=== PATIENT | male | born 1950 | race Caucasian/White ===

== ENCOUNTER 2023-08-28 18:58 | Emergency (ER) | payer MEDICARE, SELFPAY ==
[2023-08-28] VITALS (16 sets, daily range): BP systolic 94–160; BP diastolic 60–94; PULSE 68–141; RESP 15–28; TEMP 37.9–39.7; O2SAT 91–100; BMI 40.6
--- NOTE | 2023-08-28 19:04 | CTR_ITS ---
PROCEDURE INFORMATION: Exam: CT Head Without Contrast Exam date and time: 08/28/2023 8:03 PM Age: 73 years old Clinical indication: Injury or trauma; Fall; Blunt trauma (contusions or hematomas); Injury details: PT is unresponsive. Found on ground; Additional info: Fall, head injury TECHNIQUE: Imaging protocol: Computed tomography of the head without contrast. Radiation optimization: All CT scans at this facility use at least one of these dose optimization techniques: automated exposure control; mA and/or kV adjustment per patient size (includes targeted exams where dose is matched to clinical indication); or iterative reconstruction. COMPARISON: CT cervical spin wo con* [id number] 08/28/2023 8:03 PM RADIATION DOSE METRICS: Total DLP (mGy-cm): 1124.9 FINDINGS: Brain: There is diffuse cerebral atrophy and chronic microvascular white matter disease. There is no significant mass effect or midline shift. There is no acute intracranial hemorrhage. Cerebral ventricles: There is mild ex vacuo dilation of the lateral ventricles. The basal cisterns are unremarkable. Paranasal sinuses: The paranasal sinuses are clear. Mastoid air cells: The mastoid air cells are clear. Orbital cavities: The orbits are unremarkable. Bones: The calvarium is intact. Soft tissues: Mild left frontal scalp edema. CT/CT head wo con* [id number] IMPRESSION: No acute intracranial abnormality.
--- NOTE | 2023-08-28 19:04 | ECG_ITS ---
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 Measurements Intervals Humble Rate: 67 P: 67 WA: 115 QRS: 107 QRSD: 93 T: 15 QT: 400 QTc: 424 Interpretive Statements SINUS RHYTHM WITH SHORT WA INTERVAL RIGHT AXIS DEVIATION [QRS AXIS > 100] MODERATE T-WAVE ABNORMALITY, CONSIDER INFERIOR ISCHEMIA [-0.1+ mV T-WAVE IN II/aVF] No previous ECG available for comparison Electronically Signed On 08-29-2023 0:02:07 CDT by Dony Louis M.D. [id number]
--- NOTE | 2023-08-28 19:04 | XRR_ITS ---
PROCEDURE INFORMATION: Exam: XR Chest Exam date and time: 08/28/2023 7:31 PM Age: 73 years old Clinical indication: Other: Syncope; Additional info: Chest pain. Tube placements. TECHNIQUE: Imaging protocol: Radiologic exam of the chest. Views: 1 view. COMPARISON: No relevant prior studies available. FINDINGS: Tubes, catheters and devices: The endotracheal tube is appropriately positioned in the distal thoracic trachea with the tip above the linda. NG tube tip is in the stomach approximately 5 cm beyond the diaphragmatic hiatus. The side port lies just above the expected position of the diaphragmatic hiatus. Lungs: There is no consolidation. Pleural spaces: There is no pleural effusion or pneumothorax. Heart/Mediastinum: Cardiomediastinal contours are unremarkable. Diaphragm: There is mild asymmetric elevation of the right hemidiaphragm. Bones/joints: Bones are unremarkable. XR/XR chest 1V portable [id number] IMPRESSION: 1. NG tube tip is in the stomach. The side port is above the diaphragmatic hiatus. Recommend advancing the tube 10 cm for ideal position. 2. Satisfactory endotracheal tube position.
--- NOTE | 2023-08-28 19:05 | CTR_ITS ---
PROCEDURE INFORMATION: Exam: CT Chest Without Contrast; Diagnostic Exam date and time: 08/28/2023 8:07 PM Age: 73 years old Clinical indication: Injury or trauma; Fall; Generalized; Blunt trauma (contusions or hematomas) TECHNIQUE: Imaging protocol: Diagnostic computed tomography of the chest without contrast. Radiation optimization: All CT scans at this facility use at least one of these dose optimization techniques: automated exposure control; mA and/or kV adjustment per patient size (includes targeted exams where dose is matched to clinical indication); or iterative reconstruction. COMPARISON: CR (CHEST, ) 08/28/2023 7:31 PM RADIATION DOSE METRICS: Total DLP (mGy-cm): 1355.7 FINDINGS: Tubes, catheters and devices: The endotracheal tube is appropriately positioned in the distal thoracic trachea with the tip 1.8 cm above the linda. Orogastric tube extends 8 cm into the stomach. The side port lies at the diaphragmatic hiatus. Lungs: There is subsegmental atelectasis in the lung bases. Lung volumes are low. There is no consolidation. Pleural spaces: There is no pleural effusion or pneumothorax. Heart: Heart size is normal. There is no pericardial effusion. Coronary arteries: There is moderate coronary artery calcification. Mediastinal space: There is no mediastinal hematoma. Lymph nodes: There is no mediastinal or hilar lymphadenopathy. Vasculature: There is mild aortic atherosclerotic disease. Bones/joints: No visible rib fractures. The visible portions of the clavicles, scapulae, and proximal humeri are intact. Thoracic spine is intact. The sternum is intact. There is subtle deformity of the inferomedial right scapular body visible on axial series 4 image 9 through 16 which is partially obscured by beam hardening artifact from structures adjacent to the patient. Soft tissues: The extrathoracic soft tissues are unremarkable. PROCEDURE INFORMATION: Exam: CT Abdomen And Pelvis Without Contrast Exam date and time: 08/28/2023 8:07 PM Age: 73 years old Clinical indication: Injury or trauma; Fall; Generalized; Blunt trauma (contusions or hematomas) TECHNIQUE: Imaging protocol: Computed tomography of the abdomen and pelvis without contrast. Radiation optimization: All CT scans at this facility use at least one of these dose optimization techniques: automated exposure control; mA and/or kV adjustment per patient size (includes targeted exams where dose is matched to clinical indication); or iterative reconstruction. COMPARISON: CR (CHEST, ) 08/28/2023 7:31 PM RADIATION DOSE METRICS: Total DLP (mGy-cm): 1355.7 FINDINGS: Tubes, catheters and devices: NG tube extends into the stomach, with the side port at the diaphragmatic hiatus. Liver: The liver is normal. Gallbladder and bile ducts: There is a solitary stone in the gallbladder neck. No sign of cholecystitis. There is no intrahepatic or extrahepatic bile duct dilation. Pancreas: The pancreas is unremarkable. Spleen: The spleen is unremarkable. Adrenal glands: The adrenal glands are unremarkable. Kidneys and ureters: The kidneys are unremarkable. No hydronephrosis or stones. No ureteral dilation. Stomach and bowel: The stomach is nondistended, limiting assessment of wall thickness. The small bowel is nondilated. There is mild sigmoid colonic diverticulosis without evidence of diverticulitis. Appendix: The appendix is normal. Intraperitoneal space: There is no free air or significant intraperitoneal free fluid. Vasculature: There is mild aortic atherosclerotic disease. Lymph nodes: There is no lymphadenopathy in the retroperitoneum, mesentery, pelvis or inguinal regions. Urinary bladder: The Baum catheter is appropriately positioned with the bulb and tip within the bladder lumen. The urinary bladder is nondistended, limiting assessment of wall thickness. Reproductive: The prostate and seminal vesicles are unremarkable. Bones/joints: There is mild degenerative disease in the lumbar spine. There are age-indeterminate mild compression fractures at L3 and L1. There is mild degenerative disease of both hips. The bony pelvis is intact. Soft tissues: The abdominal wall is intact. CT/[place] [id number] IMPRESSION: 1. No sign of significant intrathoracic injury. 2. Subtle deformity of the inferomedial right scapular body associated with artifact. Question nondisplaced fracture. Correlate with physical exam findings. No fracture is seen elsewhere. 3. Satisfactory endotracheal tube position. IMPRESSION: 1. No sign of significant intra-abdominal injury. 2. Mild age-indeterminate L3 and L1 superior endplate compression fractures. 3. Orogastric tube tip is in the stomach. The side port is at the diaphragmatic hiatus. Recommend advancing the tube 5-10 cm for ideal position. 4. Incidental findings above.
--- NOTE | 2023-08-28 19:05 | XRR_ITS ---
PROCEDURE INFORMATION: Exam: XR Left Shoulder Exam date and time: 08/28/2023 7:33 PM Age: 73 years old Clinical indication: Injury or trauma; Fall; Blunt trauma (contusions or hematomas); Shoulder; Left; Additional info: Trauma suspected dislocation TECHNIQUE: Imaging protocol: Radiologic exam of the left shoulder. Views: 2 or more views. COMPARISON: CR (CHEST, ) 08/28/2023 7:31 PM FINDINGS: Bones/joints: Glenohumeral alignment is normal. No visible humeral, scapular or clavicle fracture. AC joint alignment is normal. Soft tissues: Visible soft tissues are unremarkable. XR/XR shoulder LT min 2V* [id number] IMPRESSION: No visible fracture or dislocation.
--- NOTE | 2023-08-28 19:05 | CTR_ITS ---
PROCEDURE INFORMATION: Exam: CT Cervical Spine Without Contrast Exam date and time: 08/28/2023 8:03 PM Age: 73 years old Clinical indication: Injury or trauma; Fall; Additional info: Fall, neck pain TECHNIQUE: Imaging protocol: Computed tomography of the cervical spine without contrast. Radiation optimization: All CT scans at this facility use at least one of these dose optimization techniques: automated exposure control; mA and/or kV adjustment per patient size (includes targeted exams where dose is matched to clinical indication); or iterative reconstruction. COMPARISON: CT head wo con* [id number] 08/28/2023 8:03 PM RADIATION DOSE METRICS: Total DLP (mGy-cm): 849 FINDINGS: Tubes, catheters and devices: Endotracheal and orogastric tubes are partially imaged. Bones: Spinal alignment is normal. Vertebral body height is maintained. There is mild degenerative disc disease in the cervical spine. There is mild multilevel facet spondylosis. No acute fracture. There is subtle deformity of the inferior right scapular body which is partially obscured by beam hardening artifact. Lungs: Lung apices are clear. Soft tissues: Soft tissues in the neck and thoracic inlet are unremarkable. CT/CT cervical spin wo con* [id number] IMPRESSION: 1. No spinal fracture. No severe spinal stenosis. 2. Subtle deformity of the right scapular body may be artifactual. Nondisplaced fracture cannot be excluded.
[2023-08-28] MEDS: vecuronium 10 mg SDV IVP (19:10)
[2023-08-28] MEDS: etomidate 2 mg/mL INJ SDV 10 mL 20 MG IVP (19:10)
[2023-08-28 19:11] LABS: Basophils % 0.2 %; Hematocrit 57.6 % (37-53); Lymphocytes % 5.2 %; Mean Corpuscular HGB Conc 33.3 g/dL (30-55); Mean Platelet Volume 10.5 fL (7.4-10.4); Monocytes # 1.7 10^3/uL (0.2-0.9); Neutrophils # 15.75 10^3/uL (1.8-7.7); Neutrophils % 84.9 %; Nucleated Red Blood Cells % 0 %; Platelet Count 251 10^3/cmm (157-399); Red Cell Distribution Width 13.2 % (12.1-15.1); White Blood Count 18.55 10^3/uL (3.29-11.43)
[2023-08-28] MEDS: fentaNYL 1,000 MCG/100 ML BAG 2.5 MCG IV (19:15)
[2023-08-28] MEDS: propofol 1,000 MG/100 ML INJ 4.08000000000000007 MG IV (19:15)
--- NOTE | 2023-08-28 19:21 | ED_ITS ---
HPI - Altered Mental Status 2 General: Chief Complaint: Syncope Stated Complaint: Unresponsive Time Seen by Provider: 08/28/23 19:00 Source: EMS Mode of arrival: EMS Limitations: altered mental status History of Present Illness: Patient presents to the ER by EMS unresponsive with sonorous respirations. Patient was found at down on his floor in his house when someone came and checked on him they called 911. EMS found him unresponsive, his blood sugar read high, they put in an IV and gave him approximately 250 mL of fluid on the way here. They did insert a nasopharyngeal airway. When patient arrived here he was unresponsive to painful stimuli, sonorous respirations, Review of Systems 2 General: Reports: ROS unobtainable due to endotracheal tube and ROS unobtainable due to mental status Physical Exam 2 Const: EXAM LIMITATIONS: altered mental status OTHER: Morbidly obese male unresponsive to painful stimuli, sonorous respirations, nasopharyngeal airway intact blood sugar read high, temperature approximately 103.4. Gag reflex was still present. HENMT: OTHER: Large lump on left temporal area could be consistent with hematoma, oral gag reflex still present. Black secretions noted in oral cavity very poor dentition Eye: OTHER: Pupils equal but pinpoint unresponsive to light Chest: OTHER: Abrasion noted on left anterior chest wall, bleeding is controlled, Resp: OTHER: Sonorous respirations, unable to maintain own airway, breath sounds decreased but present bilaterally Cardio: COMMON NORMALS: regular rate, S1 normal heart sound present and S2 normal heart sound present; negative for regular rhythm (Tachycardic) RATE: regular rate RHYTHM: a bnormal rhythm (Tachycardic) HEART SOUNDS: S1 normal heart sound present and S2 normal heart sound present GI: COMMON NORMALS: Normal to inspection, nondistended, normoactive bowel sounds present, Soft to palpation, non-tender, No hepatosplenomegaly present and no masses PALPATION: Yes Soft to palpation and Yes No hepatosplenomegaly present : OTHER: Minimal urine noted with nursing place Baum catheter Extremity: NARRATIVE EXTREMITY EXAM: Left anterior shoulder deformity possible dislocation Neuro: OTHER: Unresponsive to painful stimuli, noted patient to move all 4 extremities at times, gag reflex present, pupils unreactive and pinpoint, Procedures Intubation Time out performed: Yes sedative: Etomidate Mg Given: 20 paralytic: Vecuronium Mg Given: 10 Laryngoscope: fiber optic video scope ET Tube Size: 8 Tube Secured Depth (cm): 26 Tube Secured Location: lips Tube Placement Confirmation: visualized tube passing through cords, equal breath sounds bilaterally and no breath sounds over epigastrium Patient Tolerated Procedure: well and no complications Course 2 Vital Signs: Vital signs: Vital Signs Temperature 102.2 F H 08/28/23 21:17 Pulse Rate 119 H 08/28/23 21:17 Respiratory Rate 20 H 08/28/23 21:17 Blood Pressure 110/75 08/28/23 21:17 Pulse Oximetry 98 08/28/23 21:17 Oxygen Delivery Me thod Mechanical Ventil ation 08/28/23 21:13 Fraction of Inspir ed Oxygen 50 08/28/23 19:44 MDM - Altered Mental Status Medical Decision Making Patient was noted not being able to keep his own airway open. Patient was RSI and intubated placed on the ventilator per RT. Lab work was obtained as well as multiple images. Patient showed a white count of 18.5, hemoglobin hematocrit 19.2 57.6, sugar of 803, BUN/creatinine of 60 and 3.8, lactic acid of 8.1, magnesium 2.5, creatinine kinase of 8400 approximately urine drug screen was negative as well as serum ketones and alcohol, patient was given sepsis bolus of 30 mL/kg normal saline, 3.375 g Zosyn, 10 units of IV insulin, 400 mg of IV Tylenol, Dr Marie food sales clerk at [facility] excepted. We will place patient half-normal saline at 150 cc an hour, started insulin drip, get a CTA of the chest, 2 amp bicarb push and also a drip of 3 A of bicarb in sterile water at 125 cc an hour, 1 g of Vanco, cooling blanket or ice packs to groin, Differential Diagnosis Likely altered mental status and sepsis Medical Records I reviewed the patient's medical records. Lab Data I reviewed the patient's lab results. 08/28/23 18:40 08/28/23 18:40 Radiology Impressions Chest X-Ray 08/28/23 19:04 IMPRESSION: 1. NG tube tip is in the stomach. The side port is above the diaphragmatic hiatus. Recommend advancing the tube 10 cm for ideal position. 2. Satisfactory endotracheal tube position. Head CT 08/28/23 19:04 IMPRESSION: No acute intracranial abnormality. Cervical Spine CT 08/28/23 19:05 IMPRESSION: 1. No spinal fracture. No severe spinal stenosis. 2. Subtle deformity of the right scapular body may be artifactual. Nondisplaced fracture cannot be excluded. Chest/Abdomen/Pelvis CT 08/28/23 19:05 IMPRESSION: 1. No sign of significant intrathoracic injury. 2. Subtle deformity of the inferomedial right scapular body associated with artifact. Question nondisplaced fracture. Correlate with physical exam findings. No fracture is seen elsewhere. 3. Satisfactory endotracheal tube position. IMPRESSION: 1. No sign of significant intra-abdominal injury. 2. Mild age-indeterminate L3 and L1 superior endplate compression fractures. 3. Orogastric tube tip is in the stomach. The side port is at the diaphragmatic hiatus. Recommend advancing the tube 5-10 cm for ideal position. 4. Incidental findings above. Shoulder X-Ray 08/28/23 19:05 IMPRESSION: No visible fracture or dislocation. Laboratory Results WBC 18.55 10^3/uL (3.29-11.43) H 08/28/23 18:40 RBC 6.40 10^6/uL (3.85-5.65) H 08/28/23 18:40 Hgb 19.20 g/dL (11.27-16.99) H 08/28/23 18:40 Hct 57.6 % (37-53) H 08/28/23 18:40 MCV 90.0 fl (82-101) 08/28/23 18:40 MCH 30.0 pg (27-33) 08/28/23 18:40 MCHC 33.3 g/dL (30-55) 08/28/23 18:40 RDW 13.2 % (12.1-15.1) 08/28/23 18:40 Plt Count 251 10^3/cmm (157-399) 08/28/23 18:40 MPV 10.5 fL (7.4-10.4) H 08/28/23 18:40 Neut % (Auto) 84.9 % 08/28/23 18:40 Lymph % (Auto) 5.2 % 08/28/23 18:40 Donley % (Auto) 9.0 % 08/28/23 18:40 Eos % (Auto) 0.0 % 08/28/23 18:40 Baso % (Auto) 0.2 % 08/28/23 18:40 Neut # (Auto) 15.75 10^3/uL (1.8-7.7) H 08/28/23 18:40 Lymph # (Auto) 1.0 10^3/uL (0.8-4.8) 08/28/23 18:40 Donley # (Auto) 1.7 10^3/uL (0.2-0.9) H 08/28/23 18:40 Eos # (Auto) 0.0 10^3/uL (0.0-0.8) 08/28/23 18:40 Baso # (Auto) 0.0 10^3/uL (0.0-0.1) 08/28/23 18:40 Nucleated RBC % (auto) 0 % 08/28/23 18:40 Nucleated RBCs # 0.0 /100WBC 08/28/23 18:40 PT 14.90 SECONDS (12.1-14.9) 08/28/23 18:40 INR 1.13 (0.8-1.2) 08/28/23 18:40 Specimen Type Arterial 08/28/23 19:19 Sample Site Radial, right 08/28/23 19:19 ABG pH 7.26 (7.35-7.45) L 08/28/23 19:19 ABG pCO2 31.8 mmHg (35-45) L 08/28/23 19:19 ABG pO2 394.0 mmHg (80.0-100.0) H 08/28/23 19:19 ABG PO2/FiO2 Ratio 0 08/28/23 19:19 ABG HCO3 14.4 mmol/L (22-26) L 08/28/23 19:19 ABG O2 Saturation > 100.0 08/28/23 19:19 ABG Base Excess -11.2 mmol/L (-2.0-2.0) L 08/28/23 19:19 Holden Test Pos 08/28/23 19:19 A-a O2 Gradient 34.6 mmHg (5-10) H 08/28/23 19:19 Hematocrit 56.4 % (42-52) H 08/28/23 19:19 Hgb O2 Saturation 99.2 % (95-100) 08/28/23 19:19 Carboxyhemoglobin 1.2 %THgb (0.4-20.1) 08/28/23 19:19 Methemoglobin 0.3 % (0.4-1.5) L 08/28/23 19:19 Total Hemoglobin 18.4 g/dL (14-18) H 08/28/23 19:19 Sodium 136.0 mmol/L (131-143) 08/28/23 19:19 Potassium 4.9 mmol/L (3.5-5.0) 08/28/23 19:19 Glucose 844.0 mg/dL (70-115) H 08/28/23 19:19 Ionized Calcium 1.1 mmol/L (1.1-1.4) 08/28/23 19:19 O2 Delivery Device Vent 08/28/23 19:19 FiO2 100.0 % 08/28/23 19:19 Tidal Volume 0.50 08/28/23 19:19 PEEP 8.0 cmH20 08/28/23 19:19 Supervisor Shuttle Preparation ID [id number] 08/28/23 19:19 Sodium 136 mmol/L (136-145) 08/28/23 18:40 Potassium 5.1 mmol/L (3.5-5.1) 08/28/23 18:40 Chloride 88 mmol/L (98-107) L 08/28/23 18:40 Carbon Dioxide 16 mmol/L (22-29) L 08/28/23 18:40 Anion Gap 37.1 (5-19) H 08/28/23 18:40 BUN 60 mg/dL (8-23) H 08/28/23 18:40 Creatinine 3.8 mg/dL (0.7-1.2) H 08/28/23 18:40 GFR Calculation Not Reportable 08/28/23 18:40 Glucose 803 mg/dL (65-115) H* 08/28/23 18:40 Calculated Osmolality 338 mOsm/kg (285-295) H 08/28/23 18:40 Lactic Acid 8.1 mmol/L (0.5-2.2) H* 08/28/23 18:40 Calcium 9.8 mg/dL (8.5-10.5) 08/28/23 18:40 Phosphorus 4.0 mg/dL (2.5-4.5) 08/28/23 18:40 Magnesium 2.5 mg/dL (1.7-2.3) H 08/28/23 18:40 Total Bilirubin 1.4 mg/dL (0.15-1.2) H 08/28/23 18:40 AST 113 U/L (0-40) H 08/28/23 18:40 ALT 56 U/L (0-41) H 08/28/23 18:40 Alkaline Phosphatase 115 U/L (40-130) 08/28/23 18:40 Creatine Kinase 8464 U/L (39-308) H* 08/28/23 18:40 Troponin T Baseline 65 ng/L (0-15) H 08/28/23 18:40 C-Reactive Protein 128.6 mg/L (0.0-4.9) H 08/28/23 18:40 Total Protein 7.5 g/dL (6.6-8.7) 08/28/23 18:40 Albumin 4.7 g/dL (3.5-5.2) 08/28/23 18:40 Globulin 2.8 g/dL (1.3-4.6) 08/28/23 18:40 Procalcitonin 0.79 ng/mL (0-0.5) H 08/28/23 18:40 TSH 1.03 uIU/mL (0.27-4.20) 08/28/23 18:40 Urine Color Yellow (Yellow) 08/28/23 19:28 Urine Appearance Slightly cloudy (CLEAR) 08/28/23 19: Urine pH 5 (5-7) 08/28/23 19:28 Ur Specific [place] 1.020 (1.005-1.030) 08/28/23 19:28 Urine Protein 1+ (Negative) H 08/28/23 19: Urine Glucose (UA) 4+ (Normal) H 08/28/23 19: Urine Ketones 1+ (Negative) H 08/28/23 19:28 Urine Blood 3+ (Negative) H 08/28/23 19:28 Urine Nitrate Negative (Negative) 08/28/23 19: Urine Bilirubin Neg (Negative) 08/28/23 19: Urine Urobilinogen Neg mg/dL (Negative) 08/28/23 19:28 Ur Leukocyte Esterase Negative (Negative) 08/28/23 19:28 Urine RBC 0-4 /hpf (0-2) H 08/28/23 19:28 Urine WBC 5-10 /hpf (0-5) H 08/28/23 19:28 Ur Squamous Epith Cells 0-4 /hpf (0-5) H 08/28/23 19:28 Ur Transition Epith Cell 5-10 /hpf 08/28/23 19:28 Amorphous Sediment 1+ /hpf 08/28/23 19:28 Urine Bacteria 1+ /hpf (NONE) H 08/28/23 19:28 Urine Mucus 2+ /hpf 08/28/23 19:28 Urine Opiates Screen Negative ng/mL (Negative) 08/28/23 19:28 Ur Barbiturates Screen Negative ng/mL (Negative) 08/28/23 19:28 Ur Phencyclidine Scrn Negative ng/mL (Negative) 08/28/23 19:28 Ur Amphetamines Screen Negative ng/mL (Negative) 08/28/23 19:28 U Benzodiazepines Scrn Negative ng/mL (Negative) 08/28/23 19:28 Urine Cocaine Screen Negative ng/mL (Negative) 08/28/23 19:28 U Marijuana (THC) Screen Negative ng/mL (Negative) 08/28/23 19:28 Ethyl Alcohol < 10 mg/dL (0-10) 08/28/23 18:40 Serum Ketones Negative (Negative) 08/28/23 18:40 All radiology interpretation(s) finalized by discharge Critical Care Time 2 Critical Care Time: Critical Care Time: Yes Total Critical Care Time: 60 Attestation: The patient was emergently evaluated this patient's presentation and case had a high probability of a clinically significant, sudden, or life-threatening deterioration of the patient's initial critical presentation or condition which required my full and direct attention, intervention and personal management. Discharge Plan Discharge Patient Disposition: Xfer Short-Term Hosp Clinical Impression: Acute hypoxemic respiratory failure, Dehydration Uncontrolled diabetes mellitus with hyperglycemia Qualifiers: Diabetes mellitus type: type 2 Qualified Code(s): E11.65 - Type 2 diabetes mellitus with hyperglycemia Fall Qualifiers: Encounter type: initial encounter Qualified Code(s): W19.XXXA - Unspecified fall, initial encounter Rhabdomyolysis Qualifiers: Rhabdomyolysis type: traumatic Encounter type: initial encounter Qualified Code(s): T79.6XXA - Traumatic ischemia of muscle, initial encounter Renal failure Qualifiers: Renal failure chronicity: unspecified chronicity Qualified Code(s): N19 - Unspecified kidney failure Sepsis Qualifiers: Sepsis type: sepsis due to unspecified organism Sepsis acute organ dysfunction status: with acute organ dysfunction Severe sepsis acute organ dysfunction type: acute respiratory failure Acute respiratory failure type: with hypoxia Severe sepsis shock status: with septic shock Qualified Code(s): A41.9 - Sepsis, unspecified organism Condition: Stable Referrals: Janice Bernabe MD [Primary Care Provider] - Coding Level of Care Code ED Counter Clerk for Amena Marino
[2023-08-28 19:30] LABS: ABG PCO2 31.8 mmHg (35-45); ABG PH Result 7.26 (7.35-7.45); Alveolar-Arterial Oxygen Gradi 34.6 mmHg (5-10); Arterial Blood Gas Hematocrit 56.4 % (42-52); Base Excess ABG -11.2 mmol/L (-2.0-2.0); Blood Gas Allen Test Pos; Blood Gas Sample Site Radial, right; Blood Gas Sample Type Arterial; Carboxyhemoglobin 1.2 %THgb (0.4-20.1); HCO3 ABG 14.4 mmol/L (22-26); HGB O2 Sat 99.2 % (95-100); Ionized Calcium Level - ABG 1.1 mmol/L (1.1-1.4); Methemoglobin 0.3 % (0.4-1.5); Oxygen Device VENT; Oxygen Saturation ABG > 100.0; PO2 FiO2 Ratio Arterial Blood 0; Potassium Level - ABG 4.9 mmol/L (3.5-5.0); Total Hemoglobin 18.4 g/dL (14-18)
[2023-08-28 19:31] LABS: Lactic Sepsis W/Reflex 8.1 mmol/L (0.5-2.2)
[2023-08-28 19:32] LABS: Alanine Aminotransferase 56 U/L (0-41); Albumin Level 4.7 g/dL (3.5-5.2); Alkaline Phosphatase 115 U/L (40-130); Anion Gap 37.1 (5-19); Aspartate Amino Transferase 113 U/L (0-40); Blood Urea Nitrogen 60 mg/dL (8-23); C Reactive Protein 128.6 mg/L (0.0-4.9); Calcium 9.8 mg/dL (8.5-10.5); Carbon Dioxide 16 mmol/L (22-29); Chloride 88 mmol/L (98-107); Creatinine Clr Calc Pharmacy 24.3619; Globulin 2.8 g/dL (1.3-4.6); Potassium 5.1 mmol/L (3.5-5.1); Sodium 136 mmol/L (136-145); Total Bilirubin 1.4 mg/dL (0.15-1.2); Total Protein 7.5 g/dL (6.6-8.7)
[2023-08-28 19:33] LABS: Troponin(5th) Baseline 65 ng/L (0-15)
[2023-08-28 19:41] LABS: Osmolality Calculated 338 mOsm/kg (285-295)
[2023-08-28 19:43] LABS: INR 1.13 (0.8-1.2)
[2023-08-28 19:45] LABS: Ketone (Acetest) Serum Negative (Negative)
[2023-08-28 19:46] LABS: Glucose 803 mg/dL (65-115)
[2023-08-28] MEDS: insulin regular-human 100 units/1 mL 10 UNIT IVP (19:50)
[2023-08-28] MEDS: acetaminophen 1,000 MG/100 ML PIGGYBACK 400 MG IV (19:52)
[2023-08-28] MEDS: sodium chloride 0.9% 1,000 ML 999 ML IV (19:52)
[2023-08-28 20:02] LABS: Procalcitonin 0.79 ng/mL (0-0.5); Thyroid Stimulating Hormone 1.03 uIU/mL (0.27-4.20)
[2023-08-28 20:13] LABS: Magnesium 2.5 mg/dL (1.7-2.3)
[2023-08-28 20:15] LABS: Alcohol Level < 10 mg/dL (0-10)
[2023-08-28 20:32] LABS: Creatine Phosphokinase 8464 U/L (39-308)
[2023-08-28] MEDS: piperacillin-tazobactam 3.375 GM in sodium chloride 0.9% (plus) 50 ML IV (20:38)
[2023-08-28] MEDS: sodium chloride 0.9% 2,328 ML 2328 ML IV (20:44)
[2023-08-28] MEDS: propofol 1,000 MG/100 ML INJ 32.6599999999999966 MG IV (21:00)
[2023-08-28 21:04] LABS: Reflex Lactate Order REFLEX LACTIC ORDERD
[2023-08-28 21:12] LABS: Add Urine Microscopic? YES; Bilirubin Urine Neg (Negative); Blood Urine 3+ (Negative); Glucose Urine UA 4+ (Normal); Ketones Urine 1+ (Negative); Leukocyte Esterase Urine Negative (Negative); Nitrate Urine Negative (Negative); Protein Urine 1+ (Negative); RBC Urine 0-4 /hpf (0-2); Squamous Epithelial Cell Urine 0-4 /hpf (0-5); Urine Appearance Slightly Cloudy (CLEAR); Urine Color Yellow (Yellow); Urobilinogen Urine Neg (Negative); pH Urine 5 (5-7)
--- NOTE | 2023-08-28 21:12 | PC.NURSE ---
OG tube advanced approx 12 cm per radiologist and MD orders
[2023-08-28 21:13] LABS: Add Urine Culture? No; Amorphous Sediment Urine 1+ /hpf; Bacteria Urine 1+ /hpf; Mucus Urine 2+ /hpf
[2023-08-28 21:15] LABS: Amphetamines Screen Urine Negative (Negative); Barbiturates Screen Urine Negative (Negative); Benzodiazepines Screen Urine Negative (Negative); Cocaine Screen Urine Negative (Negative); Opiate Screen Urine Negative (Negative); PCP Screen Urine Negative (Negative); THC Screen Urine Negative (Negative)
--- NOTE | 2023-08-28 21:27 | PC.NURSE ---
pt arrived via ems with agonal breathing. pt administered 20 mg of etomidate via ivp at 1909. pt administered 10 mg vecuronium via ivp. pt intubated at 1911.
--- NOTE | 2023-08-28 21:33 | CTR_ITS ---
PROCEDURE INFORMATION: Exam: CTA Chest With Contrast Exam date and time: 08/28/2023 10:09 PM Age: 73 years old Clinical indication: Other: Resp failure; Additional info: Tachycardia, resp failure, TECHNIQUE: Imaging protocol: Computed tomographic angiography of the chest with contrast. Exam focused on the arteries. 3D rendering (Not supervised by radiologist): MIP and/or 3D reconstructed images were created by the technologist. Radiation optimization: All CT scans at this facility use at least one of these dose optimization techniques: automated exposure control; mA and/or kV adjustment per patient size (includes targeted exams where dose is matched to clinical indication); or iterative reconstruction. Contrast material: OMNI 350; Contrast volume: 45 ml; Contrast route: INTRAVENOUS (IV); COMPARISON: [place] [id number] 08/28/2023 8:07 PM RADIATION DOSE METRICS: Total DLP (mGy-cm): 478.7 FINDINGS: Limitations: Streak artifact through the lower chest and abdomen. Tubes, catheters and devices: Intubation with tip extending into the proximal right mainstem bronchus. Gastric tube with tip in the mid stomach. Pulmonary arteries: Small subsegmental filling defects in the posteroinferior right and left lower lobes. The other arteries are patent. Aorta: Unremarkable. No aortic aneurysm. No aortic dissection. Lungs: Mild atelectasis in both lungs, right greater than left. The lungs are otherwise clear. Pleural spaces: Unremarkable. No pneumothorax. No pleural effusion. Heart: Unremarkable. No cardiomegaly. No pericardial effusion. Heart RV/LV ratio: The RV/LV ratio is 0.9. Lymph nodes: Unremarkable. No enlarged lymph nodes. Gallbladder and bile ducts: 8 mm calcified stone in the gallbladder neck. The gallbladder is contracted. Bones/joints: Mild degenerative changes in the thoracic spine. No acute fracture. Soft tissues: Unremarkable. CT/CT angio chest PE protcl [id number] IMPRESSION: 1. Study is positive for small subsegmental pulmonary emboli in the lower lobes. 2. No evidence of elevated right heart pressure. 3. Cholelithiasis.
[2023-08-28] MEDS: iohexol 350 mg/mL 500 mL Btl (per mL) IV (22:17)
[2023-08-28 22:20] LABS: Troponin 5 2HR 75.78 ng/L (0-15)
[2023-08-28 22:22] LABS: Lactic Acid level (Lactate) 7.1 mmol/L (0.5-2.2); Troponin 5 2HR Delta 10.78 ABS# (0-10)
[2023-08-28] MEDS: sodium bicarbonate 150 MEQ in dextrose 5% 1,000 ML 125 MEQ IV (22:43)
[2023-08-28] MEDS: vancomycin 1,000 MG in sodium chloride 0.9% 250 ML 250 MG IV (22:46)
[2023-08-28] MEDS: INSULIN REGULAR IN 0.9 % NACL 100 UNIT/100 ML BAG 13.5 UNIT IV (23:02)
[2023-08-28] MEDS: propofol 1,000 MG/100 ML INJ 57.1499999999999986 MG IV (23:05)
[2023-08-28] MEDS: sodium chloride 0.45% 1,000 ML 125 ML IV (23:09)
[2023-08-28] MEDS: enoxaparin 120 mg/0.8 mL Syringe 130 MG SUBCUT (23:15)
--- NOTE | 2023-08-28 23:21 | PC.NURSE ---
Addendum entered by Sailaja Funez RN 08/28/23 23:45: propofol started prior to air evac leaving due to current propofol hanging running out. this propofol below is reflected in the MAR. total bottles of propofol used with this pt - 3 100 mL bottles of propofol Original Note: 1 vial of 100 mL propofol given to air evac with NESSA LOPEZ as witness.
--- NOTE | 2023-08-28 23:33 | PC.NURSE ---
bg fingerstick reading HI at time of air evac arrival. this was communicated to air evac flight nurse. no further requests at this time
--- NOTE | 2023-08-28 23:41 | PC.NURSE ---
100 mL IV fentanyl bag given to air evac nurse. ML, RN witness
[2023-08-29 10:02] LABS: Glucose Point of Care > 600 mg/dL (70-110)
[2023-08-29 10:02] LABS: Glucose Point of Care > 600 mg/dL (70-110)
[2023-08-29 10:02] LABS: Glucose Point of Care > 600 mg/dL (70-110)
== END 2023-08-29 00:01 | disposition short-term general hospital (02) ==
PROVIDERS: Emergency Medicine; Emergency Provider Emergency Medicine; PCP Family Medicine
DX: A41.9 Sepsis, unspecified organism (principal); R65.21 Severe sepsis with septic shock; J96.01 Acute respiratory failure with hypoxia; N19 Unspecified kidney failure; E11.65 Type 2 diabetes mellitus with hyperglycemia; E86.0 Dehydration; T79.6XXA Traumatic ischemia of muscle, initial encounter; W19.XXXA Unspecified fall, initial encounter
CPT/HCPCS: 31500; 36415; 36416; 36600; 51702; 70450; 71045; 71250; 71275; 72125; 73030; 74176; 80051; 80053; 80306; 80307; 81001; 82009; 82330; 82550; 82805; 82962; 83605; 83735; 84100; 84145; 84443; 84484; 85025; 85610; 86140; 87040; 87077; 87150; 87186; 87205; 93005; 94002; 94799; 96365; 96366; 96367; 96372; 96375; 99291; 99292; J0131; J1650; J1815; J2543; J2704; J3010; J3370; J3490; J7030; J7050; J7070; Q9967